=== PATIENT | male | born 1960 | race Two or more races ===

== ENCOUNTER 2017-10-08 02:10 | Inpatient (IN) | END 2017-10-10 18:10 | disposition home or self-care (01) | DRG 248 ==

== ENCOUNTER 2019-07-15 07:33 | Emergency (ER) | payer MEDICAID, OTHER ==
[~2019-07-15] VITALS: Ht 167.6 cm; Wt 76.1 kg
[~2019-07-15 07:33] MED LIST: ASPI-817 PO; ASPI-831 PO; ATOR-2 PO; CARV3.1260 PO; CLOP75TA27 PO; DICL100G37 TOP; HYDR-4011 PO; NAPR-985 PO; ONDA4TAB8 PO; TICA90TA PO
[2019-07-15 07:40] VITALS: BP 122/72; PULSE 72; RESP 18; Ht 167.6 cm; Wt 76.1 kg
[2019-07-15] MEDS ORDERED: ONDANSETRON (ODT) 4 MG TAB ODT STA (08:01)
[2019-07-15] MEDS ORDERED: IBUPROFEN 800 MG TAB PO ONE (08:30)
[2019-07-15] MEDS ORDERED: HYDROCODONE/APAP (5/325) TAB PO ONE (08:30)
== END 2019-07-15 09:23 | disposition home or self-care (01) ==
LOC: FTE 07:33
DX: M25.511 Pain in right shoulder (principal); I10 Essential (primary) hypertension; F17.210 Nicotine dependence, cigarettes, uncomplicated; V18.4XXA Pedal cycle driver injured in noncollision transport accident in traffic accident, initial encounter; Y92.9 Unspecified place or not applicable; Z79.82 Long term (current) use of aspirin; Z98.61 Coronary angioplasty status
CPT/HCPCS: 73030; Z7610

== ENCOUNTER 2019-08-06 15:43 | Emergency (ER) | payer OTHER ==
[~2019-08-06] VITALS: Ht 170.2 cm; Wt 98.4 kg
[2019-08-06 15:54] VITALS: Ht 170.2 cm; Wt 98.4 kg
[2019-08-06] MEDS ORDERED: SOD CHLORIDE 0.9% 1,000 ML IV STA (17:38)
[2019-08-06] MEDS ORDERED: ONDANSETRON 4 MG INJ IV STA (17:38)
[2019-08-06] MEDS ORDERED: BELLADONNA/PHENOBARBITAL TAB PO STA (17:38)
[2019-08-06] MEDS ORDERED: KETOROLAC 15 MG INJ IV STA (17:38)
[2019-08-06] MEDS ORDERED: AL HYDROX/MG HYDROX/SIMETH 30 ML CUP PO ONE (18:00)
[2019-08-06] MEDS ORDERED: LIDOCAINE 2% VISC 10 ML CUP PO ONE (18:00)
[2019-08-06 18:35] VITALS: BP 102/75; PULSE 68; RESP 18
== END 2019-08-06 18:55 | disposition home or self-care (01) ==
LOC: E/R 15:43
DX: R11.10 Vomiting, unspecified (principal); R19.7 Diarrhea, unspecified; E86.0 Dehydration; I10 Essential (primary) hypertension; I25.10 Atherosclerotic heart disease of native coronary artery without angina pectoris; E66.9 Obesity, unspecified; Z68.34 Body mass index [BMI] 34.0-34.9, adult; Z87.891 Personal history of nicotine dependence; Z79.02 Long term (current) use of antithrombotics/antiplatelets
CPT/HCPCS: 36415; 74176; 80053; 83690; 84484; 85025; 93005; 96374; 96375; J1885; J2405; J7030; Z7502; Z7610